=== PATIENT | male | born 1940 | race African-American/Black ===

== ENCOUNTER 2020-12-28 19:08 | Inpatient (IN) | payer BC ==
[~2020-12-28] VITALS: Ht 185.4 cm; Wt 65.0 kg
[2020-12-28 19:37] LABS: BASO % 0 % (0-3); EOS # 0.2 x10^3/uL (0.0-0.7); EOS % 3 % (0-3); HEMATOCRIT 35.6 % (39.0-53.0); HEMOGLOBIN 11.9 g/dL (13.0-17.5); LYMPH # 2.1 x10^3/uL (1.0-4.8); LYMPH % 22 % (24-48); MEAN CORPUSCULAR HEMOGLOBIN 31 pg (25-35); MEAN CORPUSCULAR HGB CONC 34 g/dL (31-37); MEAN CORPUSCULAR VOLUME 92 fL (79-100); MONO % 11 % (0-9); NEUT # 6.1 x10^3/uL (1.8-7.7); NEUT % 64 % (31-73); PLATELET COUNT 355 x10^3/uL (140-400); RED BLOOD COUNT 3.88 x10^6/uL (4.30-5.70); RED CELL DISTRIBUTION WIDTH 14.3 % (11.5-14.5); WHITE BLOOD COUNT 9.5 x10^3/uL (4.0-11.0)
[2020-12-28 19:47] LABS: CALCIUM 9.3 mg/dL (8.5-10.1); CREATININE 1.2 mg/dL (0.7-1.3); GFR 58.6; POTASSIUM 4.3 mmol/L (3.5-5.1)
[2020-12-28 19:53] LABS: ALBUMIN 2.9 g/dL (3.4-5.0); ALBUMIN/GLOBULIN RATIO 0.7 (1.0-1.7); TOTAL BILIRUBIN 0.4 mg/dL (0.2-1.0); TOTAL PROTEIN 7.3 g/dL (6.4-8.2)
--- NOTE | 2020-12-28 20:06 | RAD ---
EXAMINATION: CT head without IV contrast INDICATION:80 years, Male, syncopal episode. COMPARISON: None TECHNIQUE: Spiral acquisition of contiguous images from the skull base to the vertex were obtained. S agittal and coronal 2D reformatted series were provided by the technologist. Soft tissue and bone win reuben algorithms were reviewed. Exposure: One or more of the following individualized dose reduction techniques were utilized for thi s examination: 1. Automated exposure control 2. Adjustment of the mA and/or kV according to patient size 3. Use of iterative reconstruction technique. FINDINGS: Neither mass, midline shift, intracranial hemorrhage, acute/subacute ischemic changes, nor extraaxial fluid collections are seen. Moderate brain parenchymal volume loss. Supratentorial periventricular w brea matter hypodensities, indeterminate but most likely representing chronic microangiopathic diseas e. Old lacunar infarct in the left basal ganglia The paranasal sinuses, mastoid air cells, and middle ears are clear.The orbital contents appear withi n normal limits. IMPRESSION: 1. No acute intracranial abnormality. 2. Moderate brain parenchymal volume loss and findings of chronic microangiopathic disease. Electronically signed by: Mesha Daugherty MD (12/28/2020 8:03 PM) [facility]
--- NOTE | 2020-12-28 20:09 | RAD ---
EXAMINATION: Chest radiograph. VIEWS: Single view COMPARISON: None INDICATION:80 years, Male, syncope. FINDINGS: Normal cardiomediastinal silhouette. Subsegmental atelectasis versus scarring in the right lung base. No focal consolidation. No pleural effusion or pneumothorax. No acute osseous process. IMPRESSION: Subsegmental atelectasis versus scarring in the right lung base. No focal consolidation. Electronically signed by: Mesha Daugherty MD (12/28/2020 8:06 PM) [facility]
--- NOTE | 2020-12-28 20:45 | PHYS DOC ---
Past Medical History Additional Past Medical Histor: R HEMIPLEGIA AND HEMIPARESIS, POLYNEUROPATHY, OSTEOARTHRITIS Past Surgical History: Other Additional Past Surgical Histo: POOR HISTORIAN General Adult EDM: Chief Complaint: SYNCOPE HPI: HPI: Patient is a 80-year-old male presents to the emergency department brought in by EMS for syncopal episode at care home during dinnertime. 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 Also complains that patient is not talking as much as he usually talks. Patient willow es chest pain or shortness of breath, denies aches or pains. States he does not remember passing out and does not know why he was sent to the emergency department. Patient denies other physical complaints or physical concerns. 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 Review of Systems: Review of Systems: 14 body systems of review of systems have been reviewed. See HPI for pertinent positives and negative responses, otherwise all other systems are negative, nonpertinent or noncontributory. Constitutional: Negative except as outlined in HPI above. Skin: Negative except as outlined in HPI above. Eyes: Negative except as outlined in HPI above. HENT: Negative except as outlined in HPI above. Respiratory: Negative except as outlined in HPI above. Cardiovascular: Negative except as outlined in HPI above. GI: Negative except as outlined in HPI above. : Negative except as outlined in HPI above. Musculoskeletal: Negative except as outlined in HPI above. Integument: Negative except as outlined in HPI above. Neurologic: Negative except as outlined in HPI above. Endocrine: Negative except as outlined in HPI above. Lymphatic: Negative except as outlined in HPI above. Psychiatric: Negative except as outlined in HPI above. Heart Score: C/O Chest Pain: No Risk Factors: Risk Factors: DM, Current or recent (<one month) smoker, HTN, HLP, family history of CAD, obesity. Risk Scores: Score 0 - 3: 2.5% MACE over next 6 weeks - Discharge Home Score 4 - 6: 20.3% MACE over next 6 weeks - Admit for Clinical Observation Score 7 - 10: 72.7% MACE over next 6 weeks - Early Invasive Strategies Allergies: Allergies: Allergies Coded Allergies Type Severity Reaction Last Updated Verified No Known Drug Allergies 12/28/20 No Physical Exam: PE: Constitutional: Well developed, well nourished, no acute distress, non-toxic appearance. 80-year-old male in no apparent distress. HENT: Normocephalic, atraumatic. Eyes: Conjunctiva normal, no discharge. Neck: Normal range of motion, no stridor. Cardiovascular: No cyanosis appreciated, distal cap refill less than 2 seconds. Regular rate and rhythm, heart sounds S1-S2 auscultation. Lungs & Thorax: Patient is in no respiratory distress, no audible adventitious lung sounds appreciated. No adventitious lung sounds to auscultation off lung [place]. Abdomen: Nontender, no abnormalities noted. Skin: Warm, dry, no erythema, no rash. Back: No tenderness, no deformities. Extremities: No tenderness, no cyanosis, no clubbing, ROM intact, no edema. Patient with history of old CVA with right-sided deficits, unable to move right upper or lower extremity, full range of motion of left upper and lower extremities. Neurologic: Alert and oriented to self and place only, normal motor function, normal sensory function, no focal deficits noted. Psychologic: Affect normal, judgement normal, mood normal. Current Patient Data: Labs: Laboratory Tests Test 12/28/20 19:28 White Blood Count 9.5 x10^3/uL (4.0-11.0) Red Blood Count 3.88 x10^6/uL (4.30-5.70) L Hemoglobin 11.9 g/dL (13.0-17.5) L Hematocrit 35.6 % (39.0-53.0) L Mean Corpuscular Volume 92 fL (79-100) Mean Corpuscular Hemoglobin 31 pg (25-35) Mean Corpuscular Hemoglobin Concent 34 g/dL (31-37) Red Cell Distribution Width 14.3 % (11.5-14.5) Platelet Count 355 x10^3/uL (140-400) Neutrophils (%) (Auto) 64 % (31-73) Lymphocytes (%) (Auto) 22 % (24-48) L Monocytes (%) (Auto) 11 % (0-9) H Eosinophils (%) (Auto) 3 % (0-3) Basophils (%) (Auto) 0 % (0-3) Neutrophils # (Auto) 6.1 x10^3/uL (1.8-7.7) Lymphocytes # (Auto) 2.1 x10^3/uL (1.0-4.8) Monocytes # (Auto) 1.0 x10^3/uL (0.0-1.1) Eosinophils # (Auto) 0.2 x10^3/uL (0.0-0.7) Basophils # (Auto) 0.0 x10^3/uL (0.0-0.2) Sodium Level 143 mmol/L (136-145) Potassium Level 4.3 mmol/L (3.5-5.1) Chloride Level 109 mmol/L (98-107) H Carbon Dioxide Level 23 mmol/L (21-32) Anion Gap 11 (6-14) Blood Urea Nitrogen 19 mg/dL (8-26) Creatinine 1.2 mg/dL (0.7-1.3) Estimated GFR (Cockcroft-Gault) 58.6 BUN/Creatinine Ratio 16 (6-20) Glucose Level 94 mg/dL (70-99) Calcium Level 9.3 mg/dL (8.5-10.1) Total Bilirubin 0.4 mg/dL (0.2-1.0) Aspartate Amino Transferase (AST) 36 U/L (15-37) Alanine Aminotransferase (ALT) 24 U/L (16-63) Alkaline Phosphatase 73 U/L (46-116) Creatine Kinase 566 U/L (39-308) H Creatine Kinase MB (Mass) 6.1 ng/mL (0.0-3.6) H Creatine Kinase MB Relative Index 1.1 % (0-4) Troponin I Quantitative 0.107 ng/mL (0.000-0.055) UH-Bij-B-Type Natriuretic Peptide 5225 pg/mL (0-449) H Total Protein 7.3 g/dL (6.4-8.2) Albumin 2.9 g/dL (3.4-5.0) L Albumin/Globulin Ratio 0.7 (1.0-1.7) L Laboratory Tests 12/28/20 19:28 Laboratory Tests 12/28/20 19:28 Vital Signs: Vital Signs Date Time Temp Pulse Resp B/P (MAP) Pulse Ox O2 Delivery O2 Flow Rate FiO2 12/28/20 19:08 97.7 64 16 130/60 (83) 100 Room Air 97.7 EKG: EKG: EKG performed at 1915 by ED nursing staff shows a normal sinus rhythm heart rate is 65 bpm, parable 0.096, QTc interval 0.444, no acute STEMI, no ACS, no acute ischemia appreciated, EKG interpreted by ED attending physician Dr. Briones Radiology/Procedures: Radiology/Procedures: PATIENT: SUYAPA GRAY ACCOUNT: [id number] : 1940 LOCATION: ER AGE: 80 SEX: M EXAM STATUS: REG ER ORD. PHYSICIAN: BANDAR ENRIQUEZ APRN REASON: syncopal episode PROCEDURE: CT HEAD WO CONTRAST EXAMINATION: CT head without IV contrast INDICATION:80 years, Male, syncopal episode. COMPARISON: None TECHNIQUE: Spiral acquisition of contiguous images from the skull base to the vertex were obtained. Sagittal and coronal 2D reformatted series were provided by the technologist. Soft tissue and bone window algorithms were reviewed. Exposure: One or more of the following individualized dose reduction techniques were utilized for this examination: 1. Automated exposure control 2. Adjustment of the mA and/or kV according to patient size 3. Use of iterative reconstruction technique. FINDINGS: Neither mass, midline shift, intracranial hemorrhage, acute/subacute ischemic changes, nor extraaxial fluid collections are seen. Moderate brain parenchymal volume loss. Supratentorial periventricular white matter hypodensities, indeterminate but most likely representing chronic microangiopathic disease. Old lacunar infarct in the left basal ganglia The paranasal sinuses, mastoid air cells, and middle ears are clear.The orbital contents appear within normal limits. IMPRESSION: 1. No acute intracranial abnormality. 2. Moderate brain parenchymal volume loss and findings of chronic microangiopathic disease. Electronically signed by: eMsha Daugherty MD (12/28/2020 8:03 PM) [facility] PATIENT: SUYAPA GRAY ACCOUNT: [id number] : 1940 LOCATION: ER AGE: 80 SEX: M EXAM STATUS: REG ER ORD. PHYSICIAN: BANDAR ENRIQUEZ APRN REASON: Syncopal episode PROCEDURE: CHEST AP ONLY EXAMINATION: Chest radiograph. VIEWS: Single view COMPARISON: None INDICATION:80 years, Male, syncope. FINDINGS: Normal cardiomediastinal silhouette. Subsegmental atelectasis versus scarring in the right lung base. No focal consolidation. No pleural effusion or pneumothorax. No acute osseous process. IMPRESSION: Subsegmental atelectasis versus scarring in the right lung base. No focal consolidation. Electronically signed by: Mesha Daugherty MD (12/28/2020 8:06 PM) [facility] Course & Med Decision Making: Course & Med Decision Making Pertinent Labs and Imaging studies reviewed. (See chart for details) 80-year-old male, vital signs reviewed, presents emergency department concerning syncopal episode at care home. Physical presentation nonconcerning, patient has history of stroke, patient denies any new symptoms physical complaints or physical concerns per will order cardiorespiratory work-up. CT head without contrast Patient CT head without contrast negative for acute process, chest x-ray negati ve for acute process, troponin elevated, EKG does not show STEMI, discussed with patient and patient's family admission to hospital for NSTEMI under patient's primary care physician Dr. Lopez, patient patient's family amenable to ED planning Called and discussed patient case and ED work-up with patient's primary care physician Dr. Lopez who agrees patient's case warrants admission to the CVC unit for NSTEMI, Dr. Lopez requested cardiology consult, patient is on Plavix, related to this Dr. Lopez deferred aspirin and heparin therapy at this time. Dr. Lopez has assumed care at this time. Dragon Disclaimer: Draggemma Disclaimer: This electronic medical record was generated, in whole or in part, using a voice recognition dictation system. Departure Departure Impression: Primary Impression: NSTEMI (non-ST elevated myocardial infarction) Additional Impression: Syncopal episodes Qualified Codes: R55 - Syncope and collapse Disposition: ADMITTED INPATIENT Admitting Physician: Isi Lopez (Admit to CVC unit) Condition: STABLE Referrals: ISI LOPEZ MD (PCP) BANDAR ENRIQUEZ APRN Dec 28, 2020 20:45
[2020-12-28 20:47] LABS: PROTHROMBIN TIME PATIENT 12.9 SEC (11.7-14.0)
--- NOTE | 2020-12-28 21:13 | EKG ---
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
[2020-12-28] MEDS ORDERED: MORPHINE SULFATE 4 MG/ML INJ. IVP PRN (22:15)
[2020-12-28 23:15] VITALS: BP 149/69
[2020-12-28] MEDS ORDERED: AMLO-187 PO (23:51)
[2020-12-28] MEDS ORDERED: ASPI-630 PO (23:51)
[2020-12-28] MEDS ORDERED: GABA-585 PO (23:52)
[2020-12-28] MEDS ORDERED: ACET325T9 PO (23:52)
[2020-12-28] MEDS ORDERED: HYDR-2867 PO (23:52)
[2020-12-28] MEDS ORDERED: MELA3TAB43 PO (23:52)
[2020-12-28] MEDS ORDERED: ATOR40TA59 PO (23:52)
[2020-12-28] MEDS ORDERED: SENN-142 PO (23:52)
[2020-12-28] MEDS ORDERED: CARV6.2511 PO (23:52)
[2020-12-28] MEDS ORDERED: CLOP75TA PO (23:52)
[2020-12-28] MEDS ORDERED: MULT-245 PO (23:52)
[2020-12-28] MEDS ORDERED: IBUP-1060 PO (23:52)
[2020-12-28] MEDS ORDERED: DICL20GE TP (23:52)
[2020-12-29 03:00] VITALS: BP 132/68
[2020-12-29 07:00] VITALS: BP 164/79
[2020-12-29 11:00] VITALS: BP 164/75
--- NOTE | 2020-12-29 12:15 | PDOC2 ---
CONSULT Date of Consult Date of Consult DATE: 12/29/20 TIME: 12:15 Reason for Consult Reason for Consult: Slightly elevated troponin Referring Physician Referring Physician: Dr. Loomis Identification/Chief Complaint Chief Complaint Syncope Source Source: Chart review, Patient History of Present Illness Reason for Visit: 80-year-old male intermediate resident with history of CVA was brought by EMS after he had an episode of syncope while having dinner. Patient is not a very good historian and does not remember having lost consciousness. He denied any chest pain, shortness of breath or palpitations. 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 20 Gm TP PRN Q6HRS PRN Tylenol (Acetaminophen) 325 Mg Tablet 650 Mg PO PRN Q8HRS PRN Senna-S Laxative Tablet (Sennosides/Docusate Sodium) 1 Each Tablet 1 Each PO DAILY Multi Vitamin Daily (Multivitamin) 1 Each Tablet 1 Tab PO DAILY 30 Days Melatonin 3 Mg Tab.rapdis 1 Tab PO QHS 30 Days Ibuprofen 800 Mg Tablet 800 Mg PO PRN Q8HRS PRN Hydralazine Hcl 10 Mg Tablet 1 Tab PO TID Gabapentin (Gabapentin) 100 Mg Capsule 100 Mg PO TID Clopidogrel (Clopidogrel Bisulfate) 75 Mg Tablet 75 Mg PO DAILY Carvedilol (Carvedilol) 6.25 Mg Tablet 6.25 Mg PO BIDWMEALS Atorvastatin Calcium 40 Mg Tablet 40 Mg PO HS Aspirin 81 Mg Tab.chew 1 Tab PO DAILY Amlodipine Besylate 10 Mg Tablet 10 Mg PO DAILY Allergies Allergies: Coded Allergies: No Known Drug Allergies (Unverified , 12/28/20) ROS Review of System Full review of systems cannot be obtained since patient is a poor historian but he complained of right knee pain and denied any chest pain/shortness of breath as stated above. Physical Exam General: No acute distress HEENT: Atraumatic Lungs: Clear to auscultation Heart: Regular rate Abdomen: Soft, No hepatosplenomegaly Extremities: No edema Neuro: Normal speech Psych/Mental Status: Mood NL Vitals VITALS Vital Signs Date Time Temp Pulse Resp B/P (MAP) Pulse Ox O2 Delivery O2 Flow Rate FiO2 12/29/20 08:00 Room Air 12/29/20 07:00 97.6 74 18 164/79 (107) 98 97.6 Labs Labs Laboratory Tests Test 12/28/20 19:28 12/28/20 20:51 12/29/20 04:30 White Blood Count 9.5 x10^3/uL (4.0-11.0) Red Blood Count 3.88 x10^6/uL (4.30-5.70) Hemoglobin 11.9 g/dL (13.0-17.5) Hematocrit 35.6 % (39.0-53.0) Mean Corpuscular Volume 92 fL (79-100) Mean Corpuscular Hemoglobin 31 pg (25-35) Mean Corpuscular Hemoglobin Concent 34 g/dL (31-37) Red Cell Distribution Width 14.3 % (11.5-14.5) Platelet Count 355 x10^3/uL (140-400) Neutrophils (%) (Auto) 64 % (31-73) Lymphocytes (%) (Auto) 22 % (24-48) Monocytes (%) (Auto) 11 % (0-9) Eosinophils (%) (Auto) 3 % (0-3) Basophils (%) (Auto) 0 % (0-3) Neutrophils # (Auto) 6.1 x10^3/uL (1.8-7.7) Lymphocytes # (Auto) 2.1 x10^3/uL (1.0-4.8) Monocytes # (Auto) 1.0 x10^3/uL (0.0-1.1) Eosinophils # (Auto) 0.2 x10^3/uL (0.0-0.7) Basophils # (Auto) 0.0 x10^3/uL (0.0-0.2) Prothrombin Time 12.9 SEC (11.7-14.0) Prothromb Time International Ratio 1.0 (0.8-1.1) Activated Partial Thromboplast Time 35 SEC (24-38) Sodium Level 143 mmol/L (136-145) Potassium Level 4.3 mmol/L (3.5-5.1) Chloride Level 109 mmol/L (98-107) Carbon Dioxide Level 23 mmol/L (21-32) Anion Gap 11 (6-14) Blood Urea Nitrogen 19 mg/dL (8-26) Creatinine 1.2 mg/dL (0.7-1.3) Estimated GFR (Cockcroft-Gault) 58.6 BUN/Creatinine Ratio 16 (6-20) Glucose Level 94 mg/dL (70-99) Calcium Level 9.3 mg/dL (8.5-10.1) Total Bilirubin 0.4 mg/dL (0.2-1.0) Aspartate Amino Transf (AST/SGOT) 36 U/L (15-37) Alanine Aminotransferase (ALT/SGPT) 24 U/L (16-63) Alkaline Phosphatase 73 U/L (46-116) Creatine Kinase 566 U/L (39-308) Creatine Kinase MB (Mass) 6.1 ng/mL (0.0-3.6) Creatine Kinase MB Relative Index 1.1 % (0-4) Troponin I Quantitative 0.107 ng/mL (0.000-0.055) 0.104 ng/mL (0.000-0.055) HZ-Ldn-M-Type Natriuretic Peptide 5225 pg/mL (0-449) Total Protein 7.3 g/dL (6.4-8.2) Albumin 2.9 g/dL (3.4-5.0) Albumin/Globulin Ratio 0.7 (1.0-1.7) SARS-CoV-2 RNA (SERGEY) Negative (Negative) SARS-CoV-2 Antigen (Rapid) Negative (NEGATIVE) Laboratory Tests Test 12/28/20 19:28 12/28/20 20:51 12/29/20 04:30 White Blood Count 9.5 x10^3/uL (4.0-11.0) Red Blood Count 3.88 x10^6/uL (4.30-5.70) Hemoglobin 11.9 g/dL (13.0-17.5) Hematocrit 35.6 % (39.0-53.0) Mean Corpuscular Volume 92 fL (79-100) Mean Corpuscular Hemoglobin 31 pg (25-35) Mean Corpuscular Hemoglobin Concent 34 g/dL (31-37) Red Cell Distribution Width 14.3 % (11.5-14.5) Platelet Count 355 x10^3/uL (140-400) Neutrophils (%) (Auto) 64 % (31-73) Lymphocytes (%) (Auto) 22 % (24-48) Monocytes (%) (Auto) 11 % (0-9) Eosinophils (%) (Auto) 3 % (0-3) Basophils (%) (Auto) 0 % (0-3) Neutrophils # (Auto) 6.1 x10^3/uL (1.8-7.7) Lymphocytes # (Auto) 2.1 x10^3/uL (1.0-4.8) Monocytes # (Auto) 1.0 x10^3/uL (0.0-1.1) Eosinophils # (Auto) 0.2 x10^3/uL (0.0-0.7) Basophils # (Auto) 0.0 x10^3/uL (0.0-0.2) Prothrombin Time 12.9 SEC (11.7-14.0) Prothromb Time International Ratio 1.0 (0.8-1.1) Activated Partial Thromboplast Time 35 SEC (24-38) Sodium Level 143 mmol/L (136-145) Potassium Level 4.3 mmol/L (3.5-5.1) Chloride Level 109 mmol/L (98-107) Carbon Dioxide Level 23 mmol/L (21-32) Anion Gap 11 (6-14) Blood Urea Nitrogen 19 mg/dL (8-26) Creatinine 1.2 mg/dL (0.7-1.3) Estimated GFR (Cockcroft-Gault) 58.6 BUN/Creatinine Ratio 16 (6-20) Glucose Level 94 mg/dL (70-99) Calcium Level 9.3 mg/dL (8.5-10.1) Total Bilirubin 0.4 mg/dL (0.2-1.0) Aspartate Amino Transf (AST/SGOT) 36 U/L (15-37) Alanine Aminotransferase (ALT/SGPT) 24 U/L (16-63) Alkaline Phosphatase 73 U/L (46-116) Creatine Kinase 566 U/L (39-308) Creatine Kinase MB (Mass) 6.1 ng/mL (0.0-3.6) Creatine Kinase MB Relative Index 1.1 % (0-4) Troponin I Quantitative 0.107 ng/mL (0.000-0.055) 0.104 ng/mL (0.000-0.055) RU-Ftj-M-Type Natriuretic Peptide 5225 pg/mL (0-449) Total Protein 7.3 g/dL (6.4-8.2) Albumin 2.9 g/dL (3.4-5.0) Albumin/Globulin Ratio 0.7 (1.0-1.7) SARS-CoV-2 RNA (SERGEY) Negative (Negative) SARS-CoV-2 Antigen (Rapid) Negative (NEGATIVE) Assessment/Plan Assessment/Plan 1. Slightly elevated troponin level, most probably demand ischemia. EKG showed sinus rhythm with old anteroseptal NE and no acute changes. Patient denied any chest pain. Check 2D echo to assess LV systolic function and rule out wall motion abnormalities. 2. Syncope: Uncertain etiology, could be vasovagal. Telemetry did not show any significant arrhythmias so far. Consider event monitor as an outpatient. 3. Hypertension: Controlled 4. Hyperlipidemia: Continue statins 5. h/o CVA Thank you for your consultation LIZETH GILL MD Dec 29, 2020 12:15
[2020-12-29] MEDS: GABAPENTIN 100 MG CAPSULE. PO SCH ×2 (12:51→20:32)
[2020-12-29] MEDS: SENNOSIDES/DOCUSATE 8.6/50MG TABLET. PO SCH (12:51)
[2020-12-29] MEDS: hydrALAZINE 10 MG TABLET PO SCH ×2 (12:51→20:31)
[2020-12-29] MEDS: CLOPIDOGREL BISULFATE 75 MG TABLET PO SCH (12:51)
[2020-12-29] MEDS: ASPIRIN CHEWABLE 81 MG TABLET. PO SCH (12:51)
[2020-12-29 15:00] VITALS: BP 141/67
--- NOTE | 2020-12-29 15:07 | HP ---
ADMIT DATE: 12/28/2020 CHIEF COMPLAINT: Unresponsiveness and weakness. HISTORY OF PRESENT ILLNESS: A 80-year-old white male resident of a local assisted, patient of Dr. Lopez. Apparently, he was did not complain of specific complaint but in the ER noted to have a mildly elevated troponin without overt EKG changes. He is sleeping on the floor and unaware of the surroundings, complained of only right knee pain, which is apparently chronic. PAST HISTORY: Previous CVA with right-sided weakness and stiffness is present. MEDICATIONS: A long list of meds are noted. Apparently, he has had aspirin and Plavix. No old records are available and he is unable to provide history. VACCINATION STATUS: Unknown. SOCIAL HISTORY: Resident of a local assisted. Otherwise unknown. FAMILY HISTORY: Unknown. REVIEW OF SYSTEMS: No other complaints. OBJECTIVE: ENT: All within normal limits. NECK: No masses, nodes or bruits. LUNGS: Clear without tachypnea. CARDIOVASCULAR: Regular rate. No murmurs heard. ABDOMEN: Benign. EXTREMITIES: Right leg, has the knee hyperflexed and very stiff as well. He has evidence of weakness in the right arm as well, neurologic in origin. He has reduced left radial pulse. No active joint or skin lesions are noted. NEUROLOGIC: He has right-sided hemiparesis. He does not move the right arm or move the right leg at all. His speech is reasonably normal, but he is not aware of location, date, or situation. ASSESSMENT: unresponsiveness, etiology is not clear at this time. He has mildly elevated troponin and no overt arrhythmia present or any active chest pain. Rest of the laboratory studies unremarkable. He also has reduced left radial pulse noted on physical exam, right hemiparesis which is not new. He has a degree of underlying dementia. PLAN: Continue current care. Cardiovascular consultation obtained may have old records available. He is a full code as of this time. ALEXEY/SHERRY/ARTHUR MONTELONGO: Claudy TID: [id number]
[2020-12-29] MEDS: CARVEDILOL 6.25 MG TABLET. PO SCH (18:33)
[2020-12-29 19:15] VITALS: BP 130/63
[2020-12-29] MEDS: ACETAMINOPHEN 325 MG TABLET. PO PRN (20:31)
[2020-12-29] MEDS: ATORVASTATIN CALCIUM 40 MG TABLET. PO SCH (20:32)
[2020-12-29 23:30] VITALS: BP 132/65
[2020-12-30 03:15] VITALS: BP 149/70
[2020-12-30 07:00] VITALS: BP 135/64
[2020-12-30] MEDS: SENNOSIDES/DOCUSATE 8.6/50MG TABLET. PO SCH (09:00)
[2020-12-30] MEDS: GABAPENTIN 100 MG CAPSULE. PO SCH ×3 (09:09→19:56)
[2020-12-30] MEDS: ASPIRIN CHEWABLE 81 MG TABLET. PO SCH (09:09)
[2020-12-30] MEDS: hydrALAZINE 10 MG TABLET PO SCH ×3 (09:09→19:57)
[2020-12-30] MEDS: CLOPIDOGREL BISULFATE 75 MG TABLET PO SCH (09:09)
[2020-12-30] MEDS: CARVEDILOL 6.25 MG TABLET. PO SCH ×2 (09:10→17:00)
[2020-12-30 10:42] VITALS: BP 146/69
--- NOTE | 2020-12-30 12:03 | PDOC ---
ROSALVA JOHN APRN 12/30/20 1203: CARDIO Progress Notes Date and Time Date of Service 12/30/20 Time of Evaluation 1200 Subjective Subjective: No Chest Pain, No shortness of breath, No Palpitations Vitals Vitals Vital Signs Date Time Temp Pulse Resp B/P (MAP) Pulse Ox O2 Delivery O2 Flow Rate FiO2 12/30/20 10:42 98.2 74 20 146/69 (94) 96 Room Air 98.2 Weight Weight [ ] Input and Output Intake and Output Intake and Output 12/30/20 07:00 Intake Total 400 ml Balance 400 ml Intake Oral 400 ml # Voids 5 Physical Exam HEENT: Neck Supple W Full Motion Chest: Symmetric LUNGS: Clear to Auscultation Heart: RRR Abdomen: Soft N/T Extremities: No Edema Neurology: alert, oriented, follow commands Assessment Assessment 1. Slightly elevated troponin level, most probably demand ischemia. EKG showed sinus rhythm with old anteroseptal ND and no acute changes. CP free. Echo with preserved LV systolic function. No WMA 2. Syncope: Uncertain etiology, could be vasovagal. No pauses or bradyarrhythmias overnight 3. Hypertension: Controlled 4. Hyperlipidemia: Continue statins 5. h/o CVA 6. Arrhythmia; tele with brief burst of SVT. Otherwise SR Recommendations Secondary prevention Continue BB Outpatient event monitor Outpatient ischemic evaluation with stress testing. Supportive care Justicifation of Admission Dx: Justifications for Admission: Justification of Admission Dx: Yes Comments: Syncope Elevated troponin LIZETH GILL MD 12/30/201934: CARDIO Progress Notes Assessment Assessment Patient seen and examined. Agree with SUPERVISOR OF OPERATIONS's assessment and plan. Syncope most prob vasovagal Tele did not show any significant arrhythmias Slight trop elevation prob demand ischemia 2D echo showed normal LVF without any WMA Plan ischemic eval as outpatient ROSALVA JOHN APRN Dec 30, 2020 12:03 LIZETH GILL MD Dec 30, 2020 19:35
--- NOTE | 2020-12-30 13:13 | CARD ---
MR#: [id number] Date of Study: 12/30/2020 Ordering Physician: LIZETH GILL, Referring Physician: Arielle MARTINEZ: Portillo Izquierdo [facility] APPROVED REPORT EXAM: Two-dimensional and M-mode echocardiogram with Doppler and color Doppler. Other Information Quality : AverageHR: 64bpm Rhythm : NSRTechnically limited study due to smoking. INDICATION Elevated Troponin RISK FACTORS Hypertension Hyperlipidemia 2D DIMENSIONS Left Atrium(2D)4.3 (1.6-4.0cm)IVSd1.5 (0.7-1.1cm) Aortic Root(2D)3.9 (2.0-3.7cm)LVDd3.7 (3.9-5.9cm) LVOT Diameter2.5 (1.8-2.4cm)PWd1.5 (0.7-1.1cm) LVDs2.0 (2.5-4.0cm)FS (%) 46.5 % SV44.3 mlLVEF(%)78.7 (>50%) Aortic Valve AoV Peak Scott.108.5cm/sAoV VTI22.4cm AO Peak GR.4.7mmHgLVOT Peak Scott.108.8cm/s AO Mean GR.3mmHgAVA (VMAX)4.73cm2 Mitral Valve MV E Pkxgwtzd15.8cm/sMV E Peak Gr.4mmHg MV DECEL [id number] A Mffaevcx37.8cm/s MV E Mean Gr.1mmHgE/A Ratio0.6 Pulmonary Valve PV Peak Eqgwbzed64.0cm/s Tricuspid Valve TR P. Rjhpumkh809nz/sTR Peak Gr.26mmHg LEFT VENTRICLE The left ventricle is normal size. There is moderate concentric left ventricular hypertrophy. The lef t ventricular systolic function is normal and the ejection fraction is within normal range. EF 65% Th ere is normal LV segmental wall motion. Tissue Doppler imaging reveals mild left ventricular diastoli c dysfunction. No left ventricle thrombus noted on this study. There is no ventricular septal defect visualized. There is no left ventricular aneurysm. There is no mass noted in the left ventricle. RIGHT VENTRICLE The right ventricle is normal size. There is normal right ventricular wall thickness. The right ventr icular systolic function is normal. ATRIA The left atrium size is normal. The right atrium size is normal. The interatrial septum is intact wit h no evidence for an atrial septal defect or patent foramen ovale as noted on 2-D or Doppler imaging. AORTIC VALVE The aortic valve is thickened but opens well. Doppler and Color Flow revealed mild aortic regurgitati on. There is no significant aortic valvular stenosis. There is no aortic valvular vegetation. MITRAL VALVE The mitral valve is thickened but opens well. There is no evidence of mitral valve prolapse. There is no mitral valve stenosis. Doppler and Color-flow revealed trace mitral regurgitation. TRICUSPID VALVE The tricuspid valve is normal in structure and function. Doppler and Color Flow revealed mild tricusp id regurgitation. There is no tricuspid valve prolapse or vegetation. There is no tricuspid valve joon nosis. PULMONIC VALVE Not well visualized. GREAT VESSELS Aortic root is mildly enlarged. (4.0cm) The ascending aorta is normal in size. The IVC is normal in s ize and collapses >50% with inspiration. PERICARDIAL EFFUSION There is no pleural effusion. There is no evidence of significant pericardial effusion. Critical Notification Critical Value: No <Conclusion> There is moderate concentric left ventricular hypertrophy. The left ventricular systolic function is normal and the ejection fraction is within normal range. EF 65% There is normal LV segmental wall motion. Doppler and Color Flow revealed mild aortic regurgitation. Aortic root is mildly enlarged. (4.0cm) Signed by : Gibran Alvarado, Electronically Approved : 12/30/2020 13:12:31
[2020-12-30 14:36] VITALS: BP 113/57
--- NOTE | 2020-12-30 16:02 | PN ---
DATE: 12/30/2020 DAILY PROGRESS NOTE LOCATION: He is in room 646. SUBJECTIVE: This 80-year-old male remains hospitalized after a syncopal/presyncopal episode while eating on the [facility] at the shelter. He has vague recall of the same. He was also admitted because of an elevated troponin and has been seen by Cardiology for the same with the thoughts being there that is demand ischemia and an echocardiogram has been ordered. OBJECTIVE: VITAL SIGNS: Stable. He is afebrile. GENERAL: He is awake, alert, conversant; has no obvious speech difficulties from his prior CVA. CHEST: Clear. HEART: Regular. ABDOMEN: Benign. 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 Telemetry update has not shown any reason for the syncope. ASSESSMENT: 1. Syncope versus near syncope of uncertain etiology, possibly vasovagal. 2. History of cerebrovascular accident with right hemiparesis. 3. Hypertension. 4. Hyperlipidemia. PLAN: Await echocardiogram. Continue cardiac monitoring. Would anticipate possible discharge tomorrow if Cardiology feels safe. ALEJANDRO DR: Marybel TID: [id number]
[2020-12-30 19:05] VITALS: BP 123/71
[2020-12-30] MEDS: ACETAMINOPHEN 325 MG TABLET. PO PRN (19:55)
[2020-12-30] MEDS: ATORVASTATIN CALCIUM 40 MG TABLET. PO SCH (19:57)
[2020-12-30 22:45] VITALS: BP 118/55
[2020-12-31] MEDS: ACETAMINOPHEN 325 MG TABLET. PO PRN (06:18)
--- NOTE | 2020-12-31 06:25 | NUR ---
Tylenol given for c/o right knee pain. Brief changed. Side rails up, call light in reach.
[2020-12-31 07:00] VITALS: BP 128/58
[2020-12-31 08:08] LABS: CHOLESTEROL/HDL RATIO 2.5
[2020-12-31] MEDS: ASPIRIN CHEWABLE 81 MG TABLET. PO SCH (08:30)
[2020-12-31] MEDS: CLOPIDOGREL BISULFATE 75 MG TABLET PO SCH (08:31)
[2020-12-31] MEDS: hydrALAZINE 10 MG TABLET PO SCH (08:31)
[2020-12-31] MEDS: CARVEDILOL 6.25 MG TABLET. PO SCH (08:31)
[2020-12-31] MEDS: GABAPENTIN 100 MG CAPSULE. PO SCH (08:41)
[2020-12-31] MEDS: SENNOSIDES/DOCUSATE 8.6/50MG TABLET. PO SCH (08:42)
[2020-12-31 11:00] VITALS: BP 117/57
--- NOTE | 2020-12-31 11:58 | DS ---
DATE OF DISCHARGE: 12/31/2020 PRIMARY DIAGNOSIS: Near syncope. ADDITIONAL DIAGNOSES: Status post cerebrovascular accident with right hemiplegia, polyneuropathy, osteoarthritis. CHIEF COMPLAINT AND HISTORY OF PRESENT ILLNESS: This 80-year-old male, [facility] resident, slumped over at dinnertime at the sn[facility]. EMS brought him in. His blood pressure was low and had a low heart rate. The patient does not remember most of the episode. SUMMARY OF STAY: The patient was admitted. Cardiology was consulted. Telemetry monitoring was done throughout the stay. An echocardiogram was unrewarding. Laboratories were essentially unremarkable. COVID was negative. BNP was elevated at 5225. Troponin was slightly increased to .117 consistent with demand ischemia. Cardiology felt comfortable with discharge and suggested a possible outpatient ischemic workup. I felt that syncope was most likely vasovagal. DISPOSITION: The patient is discharged back to snf. Regular diet. Activity with help. DISCHARGE MEDICATIONS: Listed on the med rec and have been addressed. DIOGENES DR: Marybel TID: [id number]
--- NOTE | 2020-12-31 12:32 | NUR ---
SS following for discharge planning. SS reviewed pt chart and discussed with pt RN. Pt is LT resident from [place], ; fax [phone]. Pt is currently on room air. COVID19 negative. Discharge orders received for return to [place]. Discharge orders and clinical phoned and faxed to [place]. Pt will discharge today and return to [place] between 1400 and 1430 via stretcher transport. [place] to provide transport. Pt, pt's RN, and pt's family notified.
--- NOTE | 2020-12-31 13:25 | PDOC ---
DORAROSALVA ZI 12/31/20 1325: CARDIO Progress Notes Date and Time Date of Service 12/31/20 Time of Evaluation 1200 Subjective Subjective: No Chest Pain, No shortness of breath, No Palpitations Vitals Vitals Vital Signs Date Time Temp Pulse Resp B/P (MAP) Pulse Ox O2 Delivery O2 Flow Rate FiO2 12/31/20 11:00 98.2 58 16 117/57 (77) 94 Room Air 98.2 Weight Weight [ ] Input and Output Intake and Output Intake and Output 12/31/20 07:00 Intake Total 1410 ml Output Total 0 ml Balance 1410 ml Intake Oral 1410 ml Output Stool Total 0 ml # Voids 5 # Bowel Movements 4 Laboratory Labs Laboratory Tests Test 12/31/20 07:00 Triglycerides Level 29 mg/dL (0-150) Cholesterol Level 119 mg/dL (0-200) LDL Cholesterol, Calculated 65 mg/dL (0-100) VLDL Cholesterol, Calculated 6 mg/dL (0-40) Non-HDL Cholesterol Calculated 71 mg/dL (0-129) HDL Cholesterol 48 mg/dL (40-60) Cholesterol/HDL Ratio 2.5 Physical Exam HEENT: Neck Supple W Full Motion Chest: Symmetric LUNGS: Clear to Auscultation Heart: RRR Abdomen: Soft N/T Extremities: No Edema Neurology: alert, follow commands Assessment Assessment 1. Slightly elevated troponin level, most probably demand ischemia. EKG showed sinus rhythm with old anteroseptal [place] and no acute changes. CP free. Echo with preserved LV systolic function. No WMA 2. Syncope: Uncertain etiology, could be vasovagal. No pauses or bradyarrhythm ias overnight 3. Hypertension: Controlled 4. Hyperlipidemia: Continue statins 5. H/o CVA 6. Arrhythmia; tele with brief burst of PSVT. Otherwise SR Recommendations Secondary prevention Continue BB Consider outpatient event monitor and ischemic evaluation. Supportive care Justicifation of Admission Dx: Justifications for Admission: Justification of Admission Dx: Yes LIZETH GILL MD 12/31/20 1623: CARDIO Progress Notes Assessment Assessment Patient seen and examined. Agree with [employer]'s assessment and plan. Slightly elevated troponin level probably demand ischemia. 2D echo showed normal LV function without any wall motion abnormalities. Telemetry did not show any significant arrhythmias. Plan ischemic evaluation and event monitor as an outpatient ROSALVA JOHN APRN Dec 31, 2020 13:25 LIZETH GILL MD Dec 31, 2020 16:23
--- NOTE | 2020-12-31 13:45 | NUR ---
Discharge Note: [facility] Discharge instructions and discharge home medications reviewed with Other facility and a copy given. All questions have been answered and understanding verbalized. The following instructions and handouts were given: discharge instructions, med list, syncope education, Dr. Lucero's contact number. Discontinued lines and drains: Peripheral IV intact. [facility] via Stretcher at 1345. Report given to LAY Burnett at [place].
== END 2020-12-31 13:45 | DRG 312 ==
LOC: ER 19:08 → ED HOLD 20:30 → 6 SOUTH 21:46
PROVIDERS: ADMIT Family Medicine; ATTEND Family Medicine
DX: R55 Syncope and collapse (principal); I69.351 Hemiplegia and hemiparesis following cerebral infarction affecting right dominant side; I47.1 Supraventricular tachycardia; I69.353 Hemiplegia and hemiparesis following cerebral infarction affecting right non-dominant side; E78.5 Hyperlipidemia, unspecified; I50.9 Heart failure, unspecified; I11.0 Hypertensive heart disease with heart failure; F03.90 Unspecified dementia, unspecified severity, without behavioral disturbance, psychotic disturbance, mood disturbance, and anxiety; I25.2 Old myocardial infarction; M19.90 Unspecified osteoarthritis, unspecified site; G62.9 Polyneuropathy, unspecified; Z20.822 Contact with and (suspected) exposure to COVID-19; I49.9 Cardiac arrhythmia, unspecified; K59.09 Other constipation
CPT/HCPCS: 36415; 70450; 71045; 80053; 80061; 82553; 83880; 84484; 85025; 85610; 85730; 87426; 93005; 93306; 96374; J2270; U0003; U0005; 99285-25; G0378